=== PATIENT | female | born 2000 | race Caucasian/White ===

== ENCOUNTER → 2025-06-07 | Outpatient (CLI) | payer OTHER ==
[2025-06-07 16:01] LABS: HIV 1&2 SCREEN NEGATIVE (NEGATIVE)
[2025-06-07 16:08] LABS: HEPATITIS C VIRUS ABY INDEX 0.06 INDEX (<0.8)
[2025-06-07 16:16] LABS: Trichomonas vaginalis (AMP) NOT DETECTED (NEGATIVE)
[2025-06-07 16:39] LABS: GC DNA AMPLIFICATION NEGATIVE (NEGATIVE)
== END ==
LOC: M PLALAB 10:46
PROVIDERS: ATTEND Advanced Practice Midwife
DX: Z34.82 Encounter for supervision of other normal pregnancy, second trimester (principal)

== ENCOUNTER → 2025-06-23 | Outpatient (CLI) | payer OTHER | LOC: M WHC 16:19 | PROVIDERS: ATTEND Advanced Practice Midwife | DX: O44.00 Complete placenta previa NOS or without hemorrhage, unspecified trimester (principal) ==

== ENCOUNTER → 2025-07-14 | Outpatient (CLI) | payer OTHER | LOC: M WHC 13:18 | PROVIDERS: ATTEND Advanced Practice Midwife | DX: O44.00 Complete placenta previa NOS or without hemorrhage, unspecified trimester (principal) ==

== ENCOUNTER → 2025-08-09 | Outpatient (REF) | payer OTHER ==
[~2025-08-09] MED LIST: ACETGRA PO; PRENTAB9 PO; ZYRTTAB8 PO
== END ==
LOC: M PLALAB 10:20
PROVIDERS: ATTEND Obstetrics & Gynecology
DX: Z3A.36 36 weeks gestation of pregnancy (principal)

== ENCOUNTER → 2025-08-09 | Outpatient (REF) | payer OTHER | LOC: M PLALAB 08-08 13:14 | PROVIDERS: ATTEND Obstetrics & Gynecology | DX: Z3A.36 36 weeks gestation of pregnancy (principal) ==

== ENCOUNTER → 2025-08-09 | Outpatient (CLI) | payer OTHER ==
[2025-08-09 15:21] LABS: PLATELET COUNT, AUTOMATED 220 10^3/uL (150-450)
[2025-08-09 15:53] LABS: LDH LACTATE DEHYDROGENASE 184 U/L (120-246)
[2025-08-09 15:54] LABS: ALT/SGPT 12 U/L (7.0-40); AST/SGOT 20 U/L (<34); CREATININE FOR GFR 0.59 MG/DL (0.55-1.30); GLOMERULAR FILTRATION RATE > 90.0 (>60)
[2025-08-09 15:57] LABS: TOTAL PROTEIN,RANDOM URINE < 6.0 MG/DL (0.0-14.0)
== END ==
LOC: M PLALAB 11:05
PROVIDERS: ATTEND Obstetrics & Gynecology
DX: Z36.89 Encounter for other specified antenatal screening (principal); Z3A.36 36 weeks gestation of pregnancy

== ENCOUNTER 2025-08-12 10:33 | Outpatient (CLI) | payer OTHER ==
[~2025-08-12] VITALS: Ht 160 cm; Wt 90.0 kg
[2025-08-12 10:49] VITALS: BP 118/70
[2025-08-12] MEDS ORDERED: ZYRTTAB8 PO (12:03)
[2025-08-12] MEDS ORDERED: PRENTAB9 PO (12:03)
[2025-08-12] MEDS ORDERED: ACETGRA PO (12:03)
== END 2025-08-12 16:00 | disposition home or self-care (01) ==
LOC: M LDO 10:33
PROVIDERS: ATTEND Advanced Practice Midwife
DX: O47.03 False labor before 37 completed weeks of gestation, third trimester (principal); Z3A.36 36 weeks gestation of pregnancy
CPT/HCPCS: 59025; G0463

== ENCOUNTER 2025-08-13 09:43 | Outpatient (CLI) | payer OTHER ==
[~2025-08-13] VITALS: Ht 160 cm; Wt 88.4 kg
[2025-08-13] MEDS ORDERED: HOME MED LIST COMPLETE! XX SCH (10:00)
[2025-08-13 10:07] VITALS: BP 119/72
[2025-08-13 11:15] VITALS: BP 127/75
[2025-08-13] MEDS: ONDANSETRON 4MG TAB PO ONE (11:26)
[2025-08-13] MEDS: ACETAMINOPHEN 500 MG TAB PO ONE (11:26)
[2025-08-13 13:13] VITALS: BP 118/66
== END 2025-08-13 14:18 | disposition home or self-care (01) ==
LOC: M LDO 09:43
PROVIDERS: ATTEND Obstetrics & Gynecology
DX: O47.03 False labor before 37 completed weeks of gestation, third trimester (principal); O26.893 Other specified pregnancy related conditions, third trimester; R03.0 Elevated blood-pressure reading, without diagnosis of hypertension; Z3A.36 36 weeks gestation of pregnancy; Z88.5 Allergy status to narcotic agent
CPT/HCPCS: 59025; 76815; 76816; 76820; G0463

== ENCOUNTER 2025-08-16 10:55 | Inpatient (IN) | payer OTHER ==
[2025-08-16] VITALS (10 sets, daily range): BP systolic 103–173; BP diastolic 55–98; O2SAT 99–100
[~2025-08-16] VITALS: Ht 160 cm; Wt 89.9 kg
[2025-08-16 11:35] LABS: BASO # 0.0 10^3/uL (0.0-0.2); BASO % 0.3 % (0.0-1.0); EOS # 0.1 10^3/uL (0.0-0.5); EOS % 1.1 % (0.0-3.0); LYMPH # 2.2 10^3/uL (1.5-5.0); LYMPH % 18.0 % (24.0-44.0); MONO # 1.0 10^3/uL (0.0-0.8); MONO % 7.9 % (2.0-8.0); NEUTROPHILS # 8.8 10^3/uL (1.5-8.5); NEUTROPHILS % 71.9 % (36.0-66.0); PLATELET COUNT, AUTOMATED 231 10^3/uL (150-450)
[2025-08-16 12:07] LABS: LDH LACTATE DEHYDROGENASE 173 U/L (120-246)
[2025-08-16 12:08] LABS: ALT/SGPT 17 U/L (7.0-40); AST/SGOT 28 U/L (<34); CALCIUM LEVEL 9.4 MG/DL (8.5-10.1); CARBON DIOXIDE LEVEL 21 MMOL/L (20-31); CHLORIDE LEVEL 106 MMOL/L (98-107); CREATININE FOR GFR 0.54 MG/DL (0.55-1.30); GLOMERULAR FILTRATION RATE > 90.0 (>60); POTASSIUM SERUM 4.0 MMOL/L (3.5-5.1); SODIUM LEVEL 137 MMOL/L (136-145)
[2025-08-16 12:15] LABS: TOTAL PROTEIN,RANDOM URINE 13.1 MG/DL (0.0-14.0)
[2025-08-16] MEDS ORDERED: TRANEXAMIC ACID INJection 1,000 MG in NS 100 ML IV PRN ×2 (12:55→14:40)
[2025-08-16] MEDS ORDERED: CARBOPROST TROMETHAMINE 250 MCG/ML AMP IM PRN (12:55)
[2025-08-16] MEDS ORDERED: OXYTOCIN DRIP 30 UNITS in IV 1 EA IV PRN (12:55)
[2025-08-16] MEDS: LR 1,000 ML IV SCH ×3 (13:10→19:00)
[2025-08-16] MEDS ORDERED: ONDANSETRON 4MG/2ML VIAL IV PRN ×3 (13:10→17:55)
[2025-08-16] MEDS: LABETALOL 100 MG TAB PO SCH (14:59)
[2025-08-16 15:14] LABS: HIV 1&2 SCREEN NEGATIVE (NEGATIVE)
[2025-08-16 15:21] LABS: HEPATITIS C VIRUS ABY INDEX 0.04 INDEX (<0.8)
[2025-08-16] MEDS: BICITRA 30 ML SOLN UDC PO ONE (16:01)
[2025-08-16] MEDS: ceFAZolin SODIUM 2 GM in DEXTROSE 5% (D5W) ADV/MINI-BAG 50 ML IV ONE (16:01)
[2025-08-16] MEDS ORDERED: MORPHINE PRES-FREE INJ 10 MG/10 ML VIAL As Ordered ONE (16:02)
[2025-08-16] MEDS ORDERED: ONDANSETRON 4MG/2ML VIAL As Ordered ONE (16:03)
[2025-08-16] MEDS ORDERED: KETOROLAC 30 MG/ML 1 ML VIAL As Ordered ONE (16:03)
[2025-08-16] MEDS ORDERED: OXYTOCIN 30UNITS IN 0.9% NaCl 500ML IV BAG IV ONE (16:04)
[2025-08-16] MEDS ORDERED: ACETAMINOPHEN 1000MG/100ML IV BAG As Ordered ONE (16:12)
[2025-08-16] MEDS ORDERED: TRANEXAMIC ACID 100 MG/ML 10ML VIAL As Ordered ONE (16:13)
[2025-08-16] MEDS ORDERED: **NOTE PATIENT COMMENT** MISC XX SCH (17:30)
[2025-08-16] MEDS: SLF 3 ML SYR IV SCH (17:30)
[2025-08-16] MEDS ORDERED: NALOXONE INJ 0.4 MG/1 ML VIAL IV PRN ×2 (17:30)
[2025-08-16] MEDS ORDERED: diphenhydrAMINE 50 MG/ML VIAL IV PRN (17:30)
[2025-08-16] MEDS: MEPERIDINE 25 MG/ML 1 ML VIAL IV PRN (17:43)
[2025-08-16] MEDS: OXYTOCIN DRIP 30 UNITS in IV 1 EA IV PRN (17:54)
[2025-08-16] MEDS ORDERED: ACETAMINOPHEN 325 MG TAB PO PRN (17:55)
[2025-08-16] MEDS ORDERED: MOM 30 ML SUSPENSION UDC PO PRN (17:55)
[2025-08-16] MEDS ORDERED: MORPHINE 2 MG/ML 1 ML VIAL IV PRN ×3 (17:55)
[2025-08-16] MEDS ORDERED: CALCIUM CARBONATE 500 MG CHEW U/D PO PRN (17:55)
[2025-08-16] MEDS ORDERED: DOCUSATE SODIUM 100 MG CAPSULE PO PRN (17:55)
[2025-08-16] MEDS ORDERED: PROMETHAZINE 25 MG TAB PO PRN (17:55)
[2025-08-16] MEDS ORDERED: RHOGAM 300MCG (1500IU) INJ IM SCH (17:55)
[2025-08-16] MEDS ORDERED: LABE100T91 PO (18:00)
[2025-08-16] MEDS: traMADol 50 MG TAB PO ONE (18:22)
[2025-08-16] MEDS: SIMETHICONE 80MG CHEW TAB PO PRN (20:57)
[2025-08-16] MEDS: ENOXAPARIN 40 MG/0.4 ML SYRINGE (J1650 PER 10MG) SC SCH (22:17)
[2025-08-16] MEDS: KETOROLAC 30 MG/ML 1 ML VIAL IV SCH (22:17)
[2025-08-17] VITALS (7 sets, daily range): BP systolic 96–120; BP diastolic 53–68; TEMP 97; O2SAT 98–100
[2025-08-17] MEDS ORDERED: HYDR-3715 PO (07:00)
[2025-08-17] MEDS ORDERED: IBUP80TA PO (07:02)
[2025-08-17 08:38] LABS: PLATELET COUNT, AUTOMATED 226 10^3/uL (150-450)
[2025-08-17] MEDS: PRENATAL VITAMINS CHEWABLE TABLET PO SCH (09:06)
[2025-08-17] MEDS: IBUPROFEN 800 MG TAB PO SCH (19:18)
[2025-08-18 02:26] VITALS: BP 108/68; O2SAT 98
[2025-08-18 05:25] VITALS: BP 94/51; O2SAT 98
[2025-08-18 06:10] VITALS: BP 109/66
[2025-08-18] MEDS ORDERED: MEASLES,MUMPS,RUBELLA VACCINE INJ (MMR-II) SC.IMMUN ONE (09:00)
[2025-08-18 09:26] VITALS: BP 118/62
[2025-08-18 09:35] LABS: PLATELET COUNT, AUTOMATED 254 10^3/uL (150-450)
[2025-08-18] MEDS ORDERED: BLOOMIS XX (14:17)
== END 2025-08-18 14:58 | disposition home or self-care (01) | DRG 773 ==
LOC: M LDO 10:55 → M LDI 12:46 → M OBS 19:07
PROVIDERS: ADMIT Obstetrics & Gynecology; ATTEND Obstetrics & Gynecology
PROC: 10D00Z1 Extraction of Products of Conception, Low, Open Approach (ICD-10-PCS; principal; 2025-08-16 16:00)
DX: O13.4 Gestational [pregnancy-induced] hypertension without significant proteinuria, complicating childbirth (principal); Z3A.37 37 weeks gestation of pregnancy; Z37.0 Single live birth